=== PATIENT | male | born 1960 | race African-American/Black ===

== ENCOUNTER 2020-04-27 09:08 | Outpatient (CLI) | payer OTHER ==
--- NOTE | 2020-04-27 10:37 | MRI ---
EXAM: Lumbar spine MRI without contrast. HISTORY: Lumbago with left-sided sciatica COMPARISON: Lumbar spine plain x-ray, 12/13/2010 FINDINGS: Multiplanar, multisequence MRI examination of the lumbar spine is performed. The conus medullaris region appears unremarkable. No evidence for abnormal marrow edema signal. Generalized disc desiccation changes and ligament and facet hypertrophic changes. T12-L1 disc level: Unremarkable. L1-L2 disc level: Unremarkable. L2-L3 disc level: Unremarkable. L3-L4 disc level: Mild disc bulging with lateral recess mild stenosis and bilateral foraminal mild st enosis. L4-L5 disc level: Mild lateral recess and foraminal narrowing. L5-S1 disc level: Moderate bilateral foraminal stenosis. IMPRESSION: Variable severity multilevel mostly lateral recess and foraminal stenotic changes as above.
== END 2020-04-27 09:09 | disposition home or self-care (01) ==
LOC: TBSIIMAG 09:08
PROVIDERS: ATTEND Nurse Practitioner Family
DX: M54.42 Lumbago with sciatica, left side (principal); G89.29 Other chronic pain; M48.061 Spinal stenosis, lumbar region without neurogenic claudication
CPT/HCPCS: 72148

== ENCOUNTER 2021-01-18 20:32 | Emergency (ER) | payer OTHER | END 2021-01-18 21:21 | disposition home or self-care (01) | LOC: ERS 20:32 | DX: T16.2XXA Foreign body in left ear, initial encounter (principal); I10 Essential (primary) hypertension; M19.90 Unspecified osteoarthritis, unspecified site | CPT/HCPCS: 69200 ==

== ENCOUNTER 2021-02-03 10:54 | Emergency (ER) | payer OTHER ==
[2021-02-03] MEDS ORDERED: Iopamidol-370 76% 500 ML 1 ML ONE (11:49)
[2021-02-03 11:55] LABS: #Basophils 0.1 thou/uL (0.0-0.2); #Eosinphils 0.2 thou/uL (0.0-0.7); #Lymphocytes 1.5 thou/uL (1.20-3.40); #Monocytes 0.6 thou/uL (0.11-0.59); #Neutrophils 4.5 thou/uL (1.40-6.50); %Basophils 0.8 % (0.0-1.0); %Eosinophils 3.3 % (0.0-10.0); %Lymphocytes 22.2 % (21.0-51.0); %Monocytes 8.3 % (0.0-10.0); %Neutrophils 65.5 % (42.0-75.0); Hemoglobin 14.3 g/dL (14.0-18.0); Mean Corpuscular HGB CONC 32.4 g/dL (32.0-36.0); Mean Corpuscular Hemoglobin 30.2 pg (27.0-31.0); Mean Corpuscular Volume 93.3 fL (78.0-98.0); Mean Platelet Volume 10.3 fL (7.4-10.4); Platelet Count 122 thou/uL (130-400); RBC Distribution Width 14.2 % (11.5-14.5); Red Blood Cell (RBC) Count 4.74 mill/uL (4.70-6.10); White Blood Cell (WBC) Count 6.9 thou/uL (4.8-10.8)
[2021-02-03 12:08] LABS: ALT (SGPT) 67 U/L (8-55); AST (SGOT) 56 U/L (5-34); Albumin 3.6 g/dL (3.5-5.0); Alkaline Phosphatase 67 U/L (40-110); Anion Gap 10 mmol/L (10-20); BUN (Urea Nitrogen) 6 mg/dL (8.4-25.7); Bilirubin, Total 0.6 mg/dL (0.2-1.2); CRP (Inflammatory) 3.01 mg/dL (= or < 0.5); Calc. Creatinine Clearance 0 mL/min (70-130); Calcium 8.8 mg/dL (7.8-10.44); Carbon Dioxide 34 mmol/L (22-29); Chloride 101 mmol/L (98-107); Glucose 97 mg/dL (70-105); Protein, Total 7.6 g/dL (6.0-8.3); Sodium 141 mmol/L (136-145)
[2021-02-03 12:10] LABS: Potassium 3.9 mmol/L (3.5-5.1)
[2021-02-03] MEDS ORDERED: Cefepime 2 GM VIAL ONE (13:54)
[2021-02-03] MEDS ORDERED: Bacitracin 1 PK ONE (14:23)
[2021-02-03] MEDS ORDERED: Vancomycin 1 GM/200 ML BAG ONE (14:23)
[2021-02-03 14:56] LABS: Bilirubin Negative (Negative); Blood, Urine Negative (Negative); Clarity Clear (Clear); Glucose, Urine (Dipstick) Normal (Negative); Ketone, Urine Negative (Negative); Leukocyte Negative Leu/uL (Negative); Nitrite Negative (Negative); Protein, Urine (Dipstick) Negative (Neg-Trace); Specific Gravity, Urine 1.035 (1.002-1.036); Urobilinogen Normal mg/dL (Less than 2); pH, Urine 7.5 (5.0-9.0)
== END 2021-02-03 16:12 | disposition home or self-care (01) ==
LOC: ERS 10:54
DX: L02.416 Cutaneous abscess of left lower limb (principal); L03.116 Cellulitis of left lower limb; I10 Essential (primary) hypertension; Z79.82 Long term (current) use of aspirin; Z79.899 Other long term (current) drug therapy
CPT/HCPCS: 72193; 80053; 81003; 83605; 85025; 86140; 87040; 96365; 96367; J0692; J3370; Q9967

== ENCOUNTER 2021-02-06 14:48 | Emergency (ER) | payer OTHER | END 2021-02-06 18:35 | disposition home or self-care (01) | LOC: ERS 14:48 | DX: L02.214 Cutaneous abscess of groin (principal); L03.314 Cellulitis of groin; I10 Essential (primary) hypertension | CPT/HCPCS: 99283 ==

== ENCOUNTER 2021-03-13 15:00 | Emergency (ER) | payer OTHER ==
[2021-03-13] MEDS ORDERED: Lidocaine 1% PF 5 ML VIAL ONE (17:03)
[2021-03-13] MEDS ORDERED: Bacitracin 1 PK ONE (17:32)
== END 2021-03-13 17:40 | disposition home or self-care (01) ==
LOC: ERS 15:00
DX: S90.852A Superficial foreign body, left foot, initial encounter (principal); M25.512 Pain in left shoulder; E66.9 Obesity, unspecified; F17.210 Nicotine dependence, cigarettes, uncomplicated; W45.8XXA Other foreign body or object entering through skin, initial encounter; Z79.82 Long term (current) use of aspirin; Z79.899 Other long term (current) drug therapy
CPT/HCPCS: 28190

== ENCOUNTER 2021-10-29 09:27 | Outpatient (CLI) | payer MEDICAID | END 2021-10-29 09:28 | disposition home or self-care (01) | LOC: BICRAD 09:27 | PROVIDERS: ATTEND Anesthesiology Addiction Medicine | DX: M25.561 Pain in right knee (principal); M25.562 Pain in left knee; M25.572 Pain in left ankle and joints of left foot; M25.511 Pain in right shoulder; M25.512 Pain in left shoulder; M19.011 Primary osteoarthritis, right shoulder ==

== ENCOUNTER 2021-10-29 10:34 | Emergency (ER) | payer MEDICAID ==
[~2021-10-29 10:34] MED LIST: Iopamidol-370 76% 500 ML 1 ML ONE
[2021-10-29 11:51] LABS: #Basophils 0.1 thou/uL (0.0-0.2); #Eosinphils 0.1 thou/uL (0.0-0.7); #Lymphocytes 1.5 thou/uL (1.20-3.40); #Monocytes 0.4 thou/uL (0.11-0.59); %Eosinophils 2.9 % (0.0-10.0); %Lymphocytes 29.6 % (21.0-51.0); %Monocytes 8.5 % (0.0-10.0); Hemoglobin 13.8 g/dL (14.0-18.0); Mean Corpuscular HGB CONC 32.3 g/dL (32.0-36.0); Mean Corpuscular Hemoglobin 29.9 pg (27.0-31.0); Mean Corpuscular Volume 92.3 fL (78.0-98.0); Mean Platelet Volume 10.5 fL (7.4-10.4); Platelet Count 120 thou/uL (130-400); RBC Distribution Width 14.6 % (11.5-14.5); Red Blood Cell (RBC) Count 4.61 mill/uL (4.70-6.10); White Blood Cell (WBC) Count 5.2 thou/uL (4.8-10.8)
[2021-10-29 12:01] LABS: ALT (SGPT) 66 U/L (8-55); AST (SGOT) 48 U/L (5-34); Albumin 3.6 g/dL (3.5-5.0); Alkaline Phosphatase 63 U/L (40-110); Anion Gap 12 mmol/L (10-20); BUN (Urea Nitrogen) 8 mg/dL (8.4-25.7); Bilirubin, Total 0.6 mg/dL (0.2-1.2); Calc. Creatinine Clearance 0 mL/min (70-130); Calcium 8.7 mg/dL (7.8-10.44); Carbon Dioxide 31 mmol/L (22-29); Chloride 102 mmol/L (98-107); Globulin 3.9 g/dL (2.4-3.5); Glucose 96 mg/dL (70-105); Lipase 65 U/L (8-78); Potassium 3.6 mmol/L (3.5-5.1); Protein, Total 7.5 g/dL (6.0-8.3); Sodium 141 mmol/L (136-145)
[2021-10-29] MEDS ORDERED: Magnesium Citrate 300 ML BOT ONE (13:49)
== END 2021-10-29 13:59 | disposition home or self-care (01) ==
LOC: ERS 10:34
DX: R10.9 Unspecified abdominal pain (principal); I10 Essential (primary) hypertension; M19.90 Unspecified osteoarthritis, unspecified site; F17.210 Nicotine dependence, cigarettes, uncomplicated; E66.9 Obesity, unspecified; Z68.45 Body mass index [BMI] 70 or greater, adult; Z79.82 Long term (current) use of aspirin; Z79.899 Other long term (current) drug therapy
CPT/HCPCS: 74177; 80053; 83690; 84443; 85025; 94760; Q9967

== ENCOUNTER 2022-02-20 10:41 | Outpatient (CLI) | payer MEDICAID | END 2022-02-20 10:42 | disposition home or self-care (01) | LOC: RAD 10:41 | PROVIDERS: ATTEND Family Medicine | DX: R05.9 Cough, unspecified (principal); F17.200 Nicotine dependence, unspecified, uncomplicated | CPT/HCPCS: 71046 ==